=== PATIENT | female | born 1935 | race Caucasian/White ===

== ENCOUNTER 2016-07-25 10:54 | Outpatient (CLI) | payer OTHER ==
--- NOTE | 2016-07-25 12:40 | DI ---
EXAM: PA and lateral views of the chest HISTORY: Cough with history of asthma COMPARISON: Chest x-ray 08/17/2015 FINDINGS: The cardiomediastinal silhouette is enlarged. There is no pneumothorax or pleural effusi on. There is no consolidation, nodule or mass. The osseous structures demonstrate degenerative dis ease of the spine. IMPRESSION: Cardiomediastinal silhouette is enlarged with no acute consolidation.
== END 2016-07-25 10:55 | disposition home or self-care (01) ==
LOC: RAD 10:54
PROVIDERS: ATTEND Nurse Practitioner Family
DX: J45.991 Cough variant asthma (principal)

== ENCOUNTER 2016-08-07 15:16 | Outpatient (CLI) | END 2016-08-07 15:17 | disposition home or self-care (01) | LOC: CAR 15:16 | PROVIDERS: ATTEND Nurse Practitioner Family | DX: G47.10 Hypersomnia, unspecified (principal) | CPT/HCPCS: 95810 ==

== ENCOUNTER 2016-09-02 17:43 | Outpatient (CLI) | END 2016-09-02 17:44 | disposition home or self-care (01) | LOC: CAR 17:43 | PROVIDERS: ATTEND Psychiatry & Neurology Sleep Medicine | DX: G47.33 Obstructive sleep apnea (adult) (pediatric) (principal) | CPT/HCPCS: 95811 ==

== ENCOUNTER 2016-12-10 11:03 | Outpatient (CLI) | payer OTHER ==
--- NOTE | 2016-12-10 11:48 | DI ---
EXAM: Two views of the right hand. History: Right hand pain. Findings: No acute fracture or dislocation. Chondrocalcinosis within the triangular fibrocartilage . Moderate to severe narrowing of the first carpal metacarpal joint. Mild narrowing of the radioca rpal joint. Mild to moderate narrowing of the interphalangeal joints. Impression: 1. No acute osseous abnormality. 2. Arthritis. 3. Chondrocalcinosis.
--- NOTE | 2016-12-10 11:54 | DI ---
Exam: Left hand two views History: Arthritis Findings / impression: No acute bony or articular abnormalities are seen. Moderate interphalangeal osteoarthritic change most prominent distal interphalangeal joints. Osteoarthritic change of the f irst carpal-metacarpal joint, moderate. No erosive changes are seen. Intercarpal cystic changes ar e suspected. Overall moderate to severe distal interphalangeal and first carpal-metacarpal osteoart hritic change. Generally mild changes of the other levels.
== END 2016-12-10 11:04 | disposition home or self-care (01) ==
LOC: RAD 11:03
PROVIDERS: ATTEND Family Medicine
DX: R26.9 Unspecified abnormalities of gait and mobility (principal); M19.90 Unspecified osteoarthritis, unspecified site

== ENCOUNTER → 2017-02-23 | Outpatient (POV) | LOC: OUTPT 00:01 | PROVIDERS: ATTEND Otolaryngology | DX: H91.90 Unspecified hearing loss, unspecified ear (principal); R42 Dizziness and giddiness ==

== ENCOUNTER 2017-03-18 08:54 | Emergency (ER) ==
[2017-03-18 09:11] VITALS: TEMP 99; BMI 37.5
--- NOTE | 2017-03-18 09:34 | ED.PDOC ---
General ED Provider: Dr. SANDRA RODRIGUEZ Chief Complaint: Dizziness Stated Complaint: Pt reports "dizziness" since awakening this AM. Describes feeling of spinning around AND feeling like she was going to pass out. No nausea /vomitting/diarrhea. Has been having similar episodes of these symptoms intermittently x one month. Has seen PCP for this, doesn't recall his diagnosis , but he cut back or d/c'd one or more of her medications. She doesn't recall which ones. Time Seen by Physician: 09:31 Mode of Arrival: Stretcher Information Source: Patient, Family, EMT Exam Limitations: Other (Hard of hearing) Primary Care Provider: ILYA BERRY Nursing and Triage Documentation Reviewed and Agree: Yes EENT Complaint Exam - Ear Complaint/Exam Onset/Duration: awakening this AM. approx 90 minutes ago Symptoms Are: Still present Timing: Intermittent Initial Severity: Severe Current Severity: Moderate Character: Reports: Dizzy (room spinning AND feeling like she is going to pass out), Room spinning Aggravating: Reports: Position, Movement Alleviating: Reports: None Related History: Reports: Similar Episode (similar symptoms intermittently x 1 month) Vesicles to External Pinna: No Vesicles to Tragus: No TMJ Tenderness: None Mastoid Tenderness: None Tragal Tenderness: None External Canal: Normal Tympanic Membrane: Dullness Differential Diagnoses: Other (labyrinthitis, symptomatic anemia, cardic arrhythmia) Review of Systems - Review Of Systems Constitutional: Reports: No symptoms Eyes: Reports: Other (vertigo) Ears, Nose, Mouth, Throat: Reports: No symptoms Respiratory: Reports: Short of air (PMH of asthma, is frequently SOB) Cardiac: Reports: No symptoms GI: Reports: No symptoms : Reports: No symptoms Musculoskeletal: Reports: No symptoms Skin: Reports: No symptoms Neurological: Reports: No symptoms All Other Systems: Reviewed and Negative Past Medical History - Past Medical History Previously Healthy: Yes Endocrine: Reports: None Cardiovascular: Reports: Hypertension Respiratory: Reports: Asthma Hematological: Reports: Anemia Gastrointestinal: Reports: GERD Genitourinary: Reports: CKD Neuro/Psych: Reports: None Musculoskeletal: Reports: None Cancer: Reports: None Last Menstrual Period: 40 years - Surgical History General Surgical History: Reports: None - Family History Family History: Reports: Unknown - Social History Smoking Status: Never smoker Hx Substance Use: No Alcohol Screening: None Lives: With family - Immunizations Tetanus Shot up to Date: No Influenza Vaccine within 12 Months: No Pneumococcal Vaccine up to Date: No Physical Exam - Physical Exam Appearance: Well-appearing (positive orthostatics: Syst BP drop 30 points supine to standing), Ill-appearing, Obese Ill-appearing: None Pain Distress: None Eyes: CELESTINO (Positive Barany test), EOMI, Conjunctiva clear ENT: Nose normal, Oropharynx normal, TMs Occluded (TMs leblanc and dull, hard of hearing, barany test equivocal: no nystagmus seen but pt reports vertigo) Respiratory: Airway patent, Breath sounds clear, Breath sounds equal, Respirations nonlabored Cardiovascular: RRR (distant heart sounds), Pulses normal, No rub, No murmur GI/: Soft, Nontender, No masses, Bowel sounds normal, No Organomegaly, Tender (mild generalized tenderness) Musculoskeletal: Normal strength, ROM intact, No edema, No calf tenderness Skin: Warm, Dry, Normal color Neurological: Sensation intact, Motor intact, Reflexes intact, Cranial nerves intact, Alert, Oriented Psychiatric: Affect appropriate, Mood appropriate Interpretation - Radiology Interpretation Radiology Interpretation By: Radiologist Radiology Results: No acute changes Exam Interpreted: CXR, Portable CXR Xray Comments: Cardiomegally, otherwise negative - EKG Interpretation Time of EKG #1: 09:48 Rate: Osmel (HR 53) Rhythm: Sinus Ectopy: None Green: NL ST Segment: Normal Interpretation: Sinus bradycardia w/1st degree AV block Critical Care Note - Critical Care Note Total Time (mins): 0 Course - Course Hematology/Chemistry: 03/18/17 09:53 03/18/17 09:53 Vital Signs: Temp Pulse Resp BP Pulse Ox 03/18/17 08:56 99 F 54 L 20 190/84 H 96 Departure - Departure Time of Disposition: 11:29 Disposition: HOME SELF-CARE Discharge Problem: Orthostatic hypotension, Labyrinthitis Instructions: Labyrinthitis (ED) Condition: Good Pt referred to PMD for follow-up: Yes (Follow up with family doctor JAYCEE regarding low blood pressure) Allergies/Adverse Reactions: Allergies codeine Adverse Reaction (Verified 03/18/17 09:15) povidone-iodine [From Betadine] Adverse Reaction (Verified 03/18/17 09:15) soap [From Betadine] Adverse Reaction (Verified 03/18/17 09:15) Sulfa (Sulfonamide Antibiotics) Adverse Reaction (Verified 03/18/17 09:15) Home Medications: Ambulatory Orders Albuterol Sulfate [Proair Hfa] 1 puff INH PRN PRN 08/03/14 Allopurinol [Zyloprim] 300 mg PO DAILY 08/03/14 Aspirin [Aspirin EC] 81 mg PO DAILY 08/03/14 Azelastine HCl [Astepro] 0.05 puff INH BID 08/03/14 Furosemide [Lasix] 60 mg PO DAILY 08/03/14 Gabapentin [Neurontin] 100 mg PO BEDTIME 08/03/14 Mometasone Furoate [Nasonex] 1 puff INH BEDTIME 08/03/14 Ranitidine HCl [Zantac] 150 mg PO BID 08/03/14 Cholecalciferol (Vitamin D3) [Vitamin D3] 2,000 unit PO BID 03/18/17 Cyanocobalamin/Folic Acid [Vitamin P48-Jrgrj Acid Tablet] 1 each PO DAILY Lisinopril [Zestril] 10 mg PO BEDTIME 03/18/17 Meclizine HCl 25 mg PO QID PRN #20 tablet 03/18/17 Disposition Discussed With: Patient, Family
[2017-03-18 09:43] VITALS: BP 158/75
[2017-03-18 09:55] LABS: BASOPHILS % (AUTO) 0.6 % (0.0-3.0); EOSINOPHILS # (AUTO) 0.3 K/ul (0.0-0.7); EOSINOPHILS % (AUTO) 4.2 % (0.0-7.0); HEMATOCRIT 37.5 % (37.0-47.0); IMMATURE GRANULOCYTE % (AUTO) 0.3 % (0.0-5.0); LYMPHOCYTES # (AUTO) 2.2 K/uL (0.60-3.4); MEAN CORPUSCULAR HEMOGLOBIN 33.1 pg (27.0-31.0); MEAN CORPUSCULAR HGB CONC 34.7 (31.8-35.4); MEAN CORPUSCULAR VOLUME 95.4 fl (81.0-99.0); MONOCYTES # (AUTO) 0.6 K/uL (0.4-2.0); NEUTROPHILS # (AUTO) 3.8 K/ul (2.0-6.9); NEUTROPHILS % (AUTO) 54.9; PLATELET COUNT 208 10^3/uL (140-440); RED BLOOD COUNT 3.93 10^6/ul (4.20-5.40); WHITE BLOOD COUNT 6.96 K/ul (4.6-10.2)
--- NOTE | 2017-03-18 10:12 | DI ---
EXAM: Single view of the chest. History: Short of breath Comparison: Chest radiograph 07/25/2016 Findings: Heart is enlarged. No focal consolidation. No appreciable pleural fluid and no pneumotho rax. No acute osseous abnormalities. Atherosclerotic vascular calcifications. Impression: Cardiomegaly without evidence for pulmonary edema.
[2017-03-18 10:21] LABS: ALBUMIN 3.3 g/dL (3.4-5.0); ALBUMIN/GLOBULIN RATIO 1.1; ANION GAP 12.6; BILIRUBIN,TOTAL 0.54 mg/dL (0.00-1.20); BUN/CREATININE RATIO 14.63; CALCIUM 10.1 mg/dL (8.2-10.2); CREATININE 0.82 mg/dL (0.60-1.30); POTASSIUM 3.6 mmol/L (3.5-5.10); TOTAL PROTEIN 6.3 g/dL (5.8-8.1); TROPONIN I 0.029 ng/ml (0.0000-0.4000)
[2017-03-18] MEDS ORDERED: ANTIVERT PO STA (10:41)
[2017-03-18 11:22] LABS: BILIRUBIN,URINE Negative (NEGATIVE); KETONES,URINE Negative (NEGATIVE); LEUKOCYTE ESTERASE ,URINE Negative (NEGATIVE); NITRITE,URINE Negative (NEGATIVE); PROTEIN,URINE Negative (NEGATIVE); URINE, BLOOD Negative (NEGATIVE)
[2017-03-18 11:23] LABS: ADD URINE MICROSCOPIC NO
== END 2017-03-18 12:11 | disposition home or self-care (01) ==
LOC: ED 08:54
DX: I95.1 Orthostatic hypotension (principal); H83.09 Labyrinthitis, unspecified ear; R06.02 Shortness of breath; Z79.899 Other long term (current) drug therapy
CPT/HCPCS: 36415; 80053; 81001; 82550; 84484; 85025; 93005; 93010; 99283

== ENCOUNTER 2017-04-09 10:28 | Outpatient (CLI) | payer OTHER | END 2017-04-09 11:19 | disposition short-term general hospital (02) | LOC: AMBL 10:28 | DX: M54.9 Dorsalgia, unspecified (principal); S51.012A Laceration without foreign body of left elbow, initial encounter; R42 Dizziness and giddiness; W19.XXXA Unspecified fall, initial encounter ==

== ENCOUNTER 2017-05-11 09:06 | Emergency (ER) ==
[2017-05-11 09:13] VITALS: BP 120/63; TEMP 97.6; BMI 37.8
[2017-05-11 09:20] LABS: BASOPHILS % (AUTO) 0.3 % (0.0-3.0); EOSINOPHILS # (AUTO) 0.2 K/ul (0.0-0.7); EOSINOPHILS % (AUTO) 1.5 % (0.0-7.0); HEMATOCRIT 39.8 % (37.0-47.0); HEMOGLOBIN 13.4 g/dl (12.0-16.0); IMMATURE GRANULOCYTE % (AUTO) 0.4 % (0.0-5.0); LYMPHOCYTES # (AUTO) 3.8 K/uL (0.60-3.4); LYMPHOCYTES % (AUTO) 32.3 (10.0-50.0); MEAN CORPUSCULAR HEMOGLOBIN 32.4 pg (27.0-31.0); MEAN CORPUSCULAR HGB CONC 33.7 (31.8-35.4); MEAN CORPUSCULAR VOLUME 96.1 fl (81.0-99.0); MONOCYTES # (AUTO) 0.7 K/uL (0.4-2.0); MONOCYTES % (AUTO) 6.4 (0-10); NEUTROPHILS # (AUTO) 6.9 K/ul (2.0-6.9); NEUTROPHILS % (AUTO) 59.1; PLATELET COUNT 186 10^3/uL (140-440); RED BLOOD COUNT 4.14 10^6/ul (4.20-5.40); WHITE BLOOD COUNT 11.63 K/ul (4.6-10.2)
[2017-05-11 09:45] LABS: ALBUMIN 3.4 g/dL (3.4-5.0); ALBUMIN/GLOBULIN RATIO 1.21; BILIRUBIN,TOTAL 0.62 mg/dL (0.00-1.20); BUN/CREATININE RATIO 15.38; CALCIUM 9.9 mg/dL (8.2-10.2); CREATININE 1.17 mg/dL (0.60-1.30); TOTAL PROTEIN 6.2 g/dL (5.8-8.1); TROPONIN I 0.031 ng/ml (0.0000-0.4000)
--- NOTE | 2017-05-11 09:57 | CT ---
EXAM: CT scan of the chest without contrast HISTORY: Cough TECHNIQUE: Imaging of the chest was performed without intravenous contrast. 5 mm thin axial images and coronal and sagittal reconstructions were provided for interpretation. Comparison none. FINDINGS: The heart is normal size. No mediastinal masses are seen. There is atherosclerotic calci fication of the coronary arteries and thoracic aorta. Lungs are clear. There is no consolidation. No lytic or blastic lesions are seen within the osseous structures. There has been previous cholecyst ectomy. IMPRESSION: No acute abnormalities are seen within the thorax.
--- NOTE | 2017-05-11 10:19 | ED.PDOC ---
General ED Provider: Dr. BURT NARAYANAN Chief Complaint: Shortness of Air Stated Complaint: cough Time Seen by Physician: 09:10 Mode of Arrival: Walk-In Information Source: Patient Exam Limitations: No limitations Primary Care Provider: ILYA BERRY Nursing and Triage Documentation Reviewed and Agree: Yes Miscellaneous Complaint Exam - Complex/Multi-System Complaint/Exam Onset/Duration: coughx 1 day Symptoms Are: Resolved Episodes Lasting: Minutes Initial Severity: Mild Current Severity: None Location of Pain: 0 Pain Radiates to: 0 Character: 0 Aggravatin Alleviatin Associated Signs and Symptoms: Reports: Cough. Denies: Decreased responsiveness , Confusion, Agitation, Dizziness, Weakness, Syncope, Headache, Short of air, Wheezing, Hemoptysis, Chest pain, Palpitations, Edema, Nausea, Vomiting, Diarrhea, Abdominal pain, Back pain, Dysuria, Hematemesis, Melena, Decreased oral intake, Fever, Diaphoresis, Immunocompromised, Anticoagulation Therapy, Recent medication changes, Indwelling medical coder, Prior MRSA, Prior VRE, Recent trauma, Remote trauma Recent Echo/LV Function: No Respiratory Distress: None JVD Present: No Tachypnea Present: No Stridor Present: No Abdominal Findings: Present: Normal findings Glascow Coma Scale (see protocol): 15 Meningeal Signs Positive: Yes Focal Weakness: Present: None Focal Sensory Loss: Present: None Gait: Normal Gag Reflex Present: Yes Babinski Sign: Negative Right, Negative Left Skin Findings: Present: Normal findings Joint Swelling Present: No In-Dwelling Device Present: No Differential Diagnosis: Metabolic Abnormality Quality Indicators for Cardiac Chest Pain: EKG in 10min. Quality Indicators for AMI: EKG in 10min. Quality Indicator For Non-Traumatic Chest Pain/Syncope: EKG Performed Review of Systems - Review Of Systems Constitutional: Reports: No symptoms Eyes: Reports: No symptoms Ears, Nose, Mouth, Throat: Reports: No symptoms Respiratory: Reports: Cough Cardiac: Reports: No symptoms GI: Reports: No symptoms : Reports: No symptoms Musculoskeletal: Reports: No symptoms Skin: Reports: No symptoms Neurological: Reports: No symptoms Endocrine: Reports: No symptoms Hematologic/Lymphatic: Reports: No symptoms All Other Systems: Reviewed and Negative Past Medical History - Past Medical History Previously Healthy: Yes Endocrine: Reports: None Cardiovascular: Reports: Hypertension Respiratory: Reports: Asthma Hematological: Reports: Anemia Gastrointestinal: Reports: GERD Genitourinary: Reports: CKD Neuro/Psych: Reports: None Musculoskeletal: Reports: None Cancer: Reports: None Last Menstrual Period: N/A - Surgical History General Surgical History: Reports: None - Family History Family History: Reports: Unknown - Social History Smoking Status: Never smoker Hx Substance Use: No Alcohol Screening: None - Immunizations Tetanus Shot up to Date: Yes Influenza Vaccine within 12 Months: No Pneumococcal Vaccine up to Date: No Physical Exam - Physical Exam Appearance: Well-appearing, No pain distress, Well-nourished Eyes: CELESTINO, EOMI, Conjunctiva clear ENT: Ears normal, Nose normal, Oropharynx normal Respiratory: Airway patent, Breath sounds clear, Breath sounds equal, Respirations nonlabored Cardiovascular: RRR, Pulses normal, No rub, No murmur GI/: Soft, Nontender, No masses, Bowel sounds normal, No Organomegaly Musculoskeletal: Normal strength, ROM intact, No edema, No calf tenderness Skin: Warm, Dry, Normal color Neurological: Sensation intact, Motor intact, Reflexes intact, Cranial nerves intact, Alert, Oriented Psychiatric: Affect appropriate, Mood appropriate Interpretation - Radiology Interpretation Radiology Interpretation By: Radiologist Radiology Results: No acute changes - Biopharmaceutical Rep Rate: Normal Rhythm: Sinus Ectopy: None Critical Care Note - Critical Care Note Total Time (mins): 0 Course - Course Hematology/Chemistry: 05/11/17 09:13 05/11/17 09:13 Orders, Labs, Meds: Lab Review 05/11/17 05/11/17 09:13 09:13 WBC 11.63 H RBC 4.14 L Hgb 13.4 Hct 39.8 MCV 96.1 MCH 32.4 H MCHC 33.7 RDW Coeff of Jeff 13.6 Plt Count 186 Immature Gran % (Auto) 0.4 Neut % (Auto) 59.1 Lymph % (Auto) 32.3 Holmes % (Auto) 6.4 Eos % (Auto) 1.5 Baso % (Auto) 0.3 Immature Gran # (Auto) 0.1 Neut # 6.9 Lymph # 3.8 H Holmes # 0.7 Eos # 0.2 Baso # 0.0 Sodium 141 Potassium 4.0 Chloride 103 Carbon Dioxide 27 Anion Gap 15.0 BUN 18 Creatinine 1.17 Estimated GFR (MDRD) 44.00 BUN/Creatinine Ratio 15.38 Glucose 115 Calcium 9.9 Total Bilirubin 0.62 AST 18 ALT 20 Alkaline Phosphatase 69 Total Creatine Kinase 59 Troponin I 0.0310 Total Protein 6.2 Albumin 3.4 Globulin 2.8 Albumin/Globulin Ratio 1.21 Orders Category Date Time Status CBC W/ AUTO DIFF Stat LAB 05/11/17 09:07 Ordered COMPREHENSIVE METABOLIC PANEL Stat LAB 05/11/17 09:07 Ordered CREATINE KINASE Stat LAB 05/11/17 09:07 Ordered TROPONIN I Stat LAB 05/11/17 09:[address] CHEST W/O CONTRAST Stat RADS 05/11/17 09:07 Ordered Vital Signs: Temp Pulse Resp BP Pulse Ox 05/11/17 09:07 97.6 F 79 22 120/63 100 Departure - Departure Time of Disposition: 10:20 Disposition: HOME SELF-CARE Discharge Problem: Cough Instructions: Cold Symptoms (ED), Chronic Cough (ED) Condition: Good Pt referred to PMD for follow-up: Yes Additional Instructions: Please call your Family Physician as soon as possible to schedule a follow-up appointment. Allergies/Adverse Reactions: Allergies codeine Adverse Reaction (Verified 05/11/17 09:14) povidone-iodine [From Betadine] Adverse Reaction (Verified 05/11/17 09:14) soap [From Betadine] Adverse Reaction (Verified 05/11/17 09:14) Sulfa (Sulfonamide Antibiotics) Adverse Reaction (Verified 05/11/17 09:14) Home Medications: Ambulatory Orders Albuterol Sulfate [Proair Hfa] 1 puff INH PRN PRN 08/03/14 Allopurinol [Zyloprim] 300 mg PO DAILY 08/03/14 Aspirin [Aspirin EC] 81 mg PO DAILY 08/03/14 Azelastine HCl [Astepro] 0.05 puff INH BID 08/03/14 Gabapentin [Neurontin] 100 mg PO BEDTIME 08/03/14 Cholecalciferol (Vitamin D3) [Vitamin D3] 2,000 unit PO BID 03/18/17 Lisinopril [Zestril] 10 mg PO BEDTIME 03/18/17 Atorvastatin Calcium [Lipitor] 20 mg PO DAILY 03/26/17 Blood Sugar Diagnostic [Glucose Test Strip] 1 each MC DAILY strip 03/26/17 Lancets [Sure Comfort Lancets] 1 each MC DAILY each 03/26/17 Amlodipine Besylate 5 mg PO DAILY 05/11/17 Clonidine HCl 0.1 mg PO DAILY 05/11/17 Docusate Sodium 100 mg PO DAILY 05/11/17 Enoxaparin Sodium [Lovenox] 40 mg PO DAILY 05/11/17 Fluticasone/Salmeterol 250/50 [Advair 250-50 Diskus] 1 puff INH DAILY 05/11/17 Furosemide [Lasix] 40 mg PO DAILY 05/11/17 Levalbuterol Tartrate [Levalbuterol Tartrate Hfa] 15 gm INH DAILY 05/11/17 Prednisone 10 mg PO DAILY 05/11/17 Ranitidine HCl 150 mg PO DAILY 05/11/17 Spironolactone 25 mg PO DAILY 05/11/17
== END 2017-05-11 11:15 | disposition home or self-care (01) ==
LOC: ED 09:06
DX: R05 Cough (principal); R06.02 Shortness of breath; Z79.899 Other long term (current) drug therapy; R10.9 Unspecified abdominal pain; Z87.09 Personal history of other diseases of the respiratory system
CPT/HCPCS: 36415; 80053; 82550; 84484; 85025; 99284

== ENCOUNTER 2017-05-26 08:55 | Outpatient (CLI) ==
--- NOTE | 2017-05-26 10:38 | MRI ---
EXAM: MRI brain without and with IV contrast. DATE: 26 May 2017. HISTORY: Memory loss, dementia. TECHNIQUE: Sagittal T1W pre and postcontrast, axial T2W, axial FLAIR, axial T1W pre and postcontrast , axial DWI, coronal T1W postcontrast, and coronal T2W GRE sequences of the brain were obtained using 1.2 Jazmin magnet. Patient appears to be canted in the scanner CONTRAST: Omniscan - 20 ml IV. COMPARISON: None. FINDINGS: The ventricles, cisterns, and sulci are commensurately enlarged due to involutional change . No midline shift, mass effect or abnormal extra-axial fluid collection is apparent. Several 3-5 m m DWI bright foci scattered in the medulla, mike and midbrain are likely artifacts since there are no corresponding abnormalities on other sequences. Small areas of T2W/FLAIR hyperintense without abnor mal enhancement are observed in the mike bilaterally. No enhancing neoplasm is identified. No abnor mal contrast enhancement is identified in the brain, meninges or dura. A [id number] confluent rim of T2W/FLAIR hyperintensity is observed in the white matter abutting each lateral ventricle. Mu ltiple other 2 mm to 2 cm, T2W/FLAIR bright, non-enhancing foci are scattered in the eddy radiata, centrum semiovale and subcortical white matter bilaterally. The cordero - white matter differentiation is normal. A few 1-2 mm diameter, T2W GRE dark foci at the right frontal and temporal lobe regions a ppear to the most part to be vessels near the cortical surface, although tiny, old cortical petechial hemorrhages are not totally excluded at two frontal lobe locations. No migration or diverticulation abnormality is identified. No distinct mesial temporal sclerosis is detected. The 7th/8th cranial nerve complexes, cerebellopontine angles, and visible cervical spinal cord are normal. There is no c erebellar tonsillar ectopia. The pituitary gland is a very small and flattened against the floor of the sella, with CSF filling the majority of the pituitary fossa. Corpus callosum is normal in size a nd configuration. Flow voids are present in the major intracranial arteries and in the dural venous sinuses. No aneurysm, AVM or dural venous sinus thrombosis is apparent. Appearance in the lens of e ach eye suggests prior cataract surgery. No orbit abnormality is identified. Right mastoid air cell s are unremarkable. A few left mastoid air cells have reticular pattern of T2W bright, T1W intermedi ate signal with minor enhancement. There is no acute sinusitis. No neck mass or lymphadenopathy is detected. No calvarial neoplasm or acute fracture is evident. IMPRESSIONS: Unexpected findin. Probable DWI artifacts in the brainstem. Correlation with clinical symptoms recommended to exclude the slight possibility of true infarcts. 2. Right frontal lobe T2W GRE susceptibility artifacts. DDX: Normal vessels, artifacts, old petechi al hemorrhages, amyloidosis. 3. Marked cerebral and moderate brainstem small vessel disease vs chronic hypertensive encephalopath y. 4. No acute hemorrhage, enhancing mass, or hydrocephalus. 5. Mild/moderate cerebral and mild cerebellar atrophy. 6. 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 7. Few left mastoid air cells mucosal disease.
== END 2017-05-26 08:56 | disposition home or self-care (01) ==
LOC: RAD 08:55
PROVIDERS: ATTEND Psychiatry & Neurology Neurology
DX: R41.3 Other amnesia (principal); F03.90 Unspecified dementia, unspecified severity, without behavioral disturbance, psychotic disturbance, mood disturbance, and anxiety

== ENCOUNTER 2017-06-04 13:27 | Outpatient (CLI) ==
[2017-06-04 13:52] LABS: BILIRUBIN,URINE Negative (NEGATIVE); KETONES,URINE Trace (NEGATIVE); LEUKOCYTE ESTERASE ,URINE 1+ (NEGATIVE); NITRITE,URINE Negative (NEGATIVE); PH,URINE 5.5 (5-9); PROTEIN,URINE Negative (NEGATIVE); URINE, BLOOD Negative (NEGATIVE)
[2017-06-04 13:53] LABS: ADD URINE MICROSCOPIC YES
[2017-06-04 13:56] LABS: BACTERIA,URINE 2+ (NOT PRESENT)
== END 2017-06-04 13:28 | disposition home or self-care (01) ==
LOC: NONPT 13:27
PROVIDERS: ATTEND Family Medicine
DX: R35.0 Frequency of micturition (principal)
CPT/HCPCS: 81001; 87086

== ENCOUNTER 2017-12-04 20:01 | Inpatient (IN) ==
[2017-12-04 23:45] VITALS: BMI 40.6
[2017-12-05] MEDS ORDERED: MILK OF MAGNESIA PO PRN (04:20)
[2017-12-05] MEDS ORDERED: SODIUM BICARBONATE PO SCH (05:00)
[2017-12-05] MEDS: XOPENEX 1.25 MG NEB SCH ×3 (05:33→21:45)
[2017-12-05] MEDS: PROTONIX PO SCH ×2 (06:03→17:55)
[2017-12-05] MEDS ORDERED: AZELASTINE HCL INH SCH (09:00)
[2017-12-05] MEDS: TOPROL XL PO SCH ×2 (09:36→20:50)
[2017-12-05] MEDS: ZYLOPRIM PO SCH ×2 (09:36→20:50)
[2017-12-05] MEDS: OMNICEF PO SCH ×2 (09:36→20:50)
[2017-12-05] MEDS: ZESTRIL PO SCH (09:37)
[2017-12-05] MEDS: LIPITOR PO SCH (09:37)
[2017-12-05] MEDS: ASPIRIN EC PO SCH (09:37)
[2017-12-05] MEDS: LASIX TAB PO SCH (09:38)
[2017-12-05] MEDS: COLACE PO SCH ×2 (09:38→20:50)
[2017-12-05] MEDS: PREDNISONE PO SCH (09:38)
[2017-12-05] MEDS: SODIUM BICARBONATE PO SCH ×2 (09:38→20:50)
[2017-12-05] MEDS: ELIQUIS PO SCH ×2 (09:39→20:51)
--- NOTE | 2017-12-05 11:42 | RS.PTINEVL ---
Subjective - Patient information Date of Evaluation: 12/05/17 Date of Arrival on Unit: 12/04/17 Admitted From:: Facility Transfer (transferred from [facility] for swing bed.) Diagnosis: afib, SOA, decline in function Usual Living Arrangement: With Others Living Arrangement Comments: grand daughter lives with patient and pt has 15 hours per week from [employer] which assists with bathing etc. Home Environment: House, Ramp Medical History: Hypertension, COPD, Arthritis Medical History Comments:: Chronic kidney disease, asthma LATEX ALLERGY?: No Medications: see chart Subjective Information/ Patient Comments:: pt states "I need to go home." pt/ nurse report that pt was up amb in hallway on her own earlier today, and unsteady. - Level of function Abilities prior to this admission: pt was very seldom at home alone, has [employer] as well as granddtr to assist with ADL's Current Level of Function: Partially Dependent Current Equipment Used at Home: walker.raised toilet seat. Life Alert system. Interventions - Objective Patient Orientation: Person, Place Current Interventions: Telemetry Observation: pt with 2+ pitting edema BLE Range of Motion - ROM Right Upper Extremity AROM: WFL's Left Upper Extremity AROM: WFL's Right Lower Extremity AROM: WFL's Left Lower Extremity AROM: WFL's Muscle Strength - Muscle Strength Right Upper Extremity Strength: Mild Weakness (grossly 4-/5) Left Upper Extremity Strength: Mild Weakness (grossly 4-/5) Right Lower Extremity Strength: Mild Weakness (hip flex 4-/5, knee flex/ext 4/5 , ankle df/pf 4/5) Left Lower Extremity Strength: Mild Weakness (hip flex 4-/5, knee flex/ext 4/5, ankle df/pf 4/5) Sensation - Sensation Right Upper Extremity Sensation: Intact/Normal Left Upper Extremity Sensation: Intact/Normal Right Lower Extremity Sensation: Intact/Normal Left Lower Extremity Sensation: Intact/Normal Palpation Palpation Findings: Tenderness Comments:: BLE tender to palpation Balance - Sitting Balance and Reactions Static Sitting Balance: Good Dynamic Sitting Balance: Fair Sitting Equilibrium Reactions: Delayed Left, Delayed Right Sitting Protective Reactions: Delayed Left, Delayed Right - Standing Balance and Reactions Static Standing Balance: Poor Dynamic Standing Balance: Poor Standing Equilibrium Reactions: Delayed Left, Delayed Right Standing Protective Reactions: Delayed Left, Delayed Right - Comments Balance Assessment Comments: pt with 3 episodes of LOB during amb required min assist to prevent fall Functional Mobility - Bed Mobility Comments:: pt seen sitting up in chair, does not wish to go to bed. - Transfers Sit to Stand: Min Assist Stand to Sit: Min Assist - Safety Awareness Safety Awareness: Poor SHYLA INDEX SCORE: 38 Ambulation - Ambulation Assistive Device Used: Rolling Walker Orthotic/Prosthetic Device: No Distance: 100ft Assistance needed with Ambulation: Min Assist, 2 person assist Gait Deviations: Forward posture, Short stride, Deviates from path Ambulation Comments: pt amb with flexed posture, decreased step length. pt with 3 episodes of LOB required min x 2 to prevent fall. Factors Affecting Ambulation: Decreased Balance, Weakness, Decreased Safety, Cognitive Status, Limited Endurance Treatment time - Time with patient Total treatment time: 29 Patient Education - Education Patient Education: Activity Modification, Education of Plan of Care Teaching Recipient: Patient Teaching Methods: Discussion Comments: discussion with patient and family regarding safety and POC, reinforced with pt importance of not amb without assist due to high risk of falls. Assessment - Assessment Problem List:: Decreased level of function, Requires training/education, Decreased safety/Risk of falls, Weakness, Cognitive status limits abilities Rehab Potential: Good Further Therapy Indicated?: Yes Candidate for Swing Bed for Therapy Services?: pt is swing bed patient Evaluation Complexity: HISTORY: Medium (afib, htn, copd, OA), EXAM OF BODY SYSTEMS: Medium (strength, balance, gait, posture), CLINICAL PRESENTATION: Medium (evolving), CLINICAL DECISION MAKING: Medium Short Term Goals GOAL #1: pt demonstrate rolling and scooting up in bed with verbal cues Goal to be met by: 12/10/17 GOAL #2: pt transfer sup to/from sit to/from stand min x 1 Goal to be met by: 12/10/17 GOAL #3: pt amb with rwx 125ft with min to CGA x 1 with improved posture Goal to be met by: 12/10/17 GOAL #4: pt with improved BLE strength 4 to 4+/5 Goal to be met by: 12/10/17 Assisted Goals GOAL #1: pt transfer sup to/from sit to/from stand CGA x 1 Goal to be met by: 12/15/17 GOAL #2: pt amb with rwx functional household distance with CGA with no LOB Goal to be met by: 12/15/17 GOAL #3: Improved Shyla score >45 Goal to be met by: 12/15/17 Plan Plan of Care: Therapeutic EX, Therapeutic Activity Other:: gait training Frequency of Treatment: 1-2 X day, as tolerated Duration of Treatment: 10 days Anticipated Discharge Destination: Home Treatment Diagnosis (ICD 10 Codes): difficulty walking R 26.2. balance impaired R 26.81. general weakness M 62.81 Has the Physician been added for Co-signature?: Yes
--- NOTE | 2017-12-05 13:44 | RS.OTINEVL ---
Subjective - Patient information Date of Evaluation: 12/05/17 Date of Arrival on Unit: 12/04/17 Admitted From:: Facility Transfer (transferred from [facility] for swing bed.) Usual Living Arrangement: With Others Living Arrangement Comments: grand daughter lives with patient and pt has 15 hours per week from [employer] which assists with bathing etc. 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 Life Alert system. Pain Assessment - Pain Pain Score: 0 Interventions - Objective Patient Orientation: Person Observation: Pt is confused. Pt is oriented to person only. Pt requires assistance for sit to stand. Pt is SOLOMON. Pt is able to stand minimal assistance of 2. Interventions - ROM Right Upper Extremity AROM: WFL's Left Upper Extremity AROM: WFL's - Strength Right Upper Extremity Strength: Mild Weakness Left Upper Extremity Strength: Mild Weakness - Sensation Right Upper Extremity Sensation: Intact/Normal Left Upper Extremity Sensation: Intact/Normal Balance - Sitting Balance Static Sitting Balance: Good Dynamic Sitting Balance: Good - Standing Balance Static Standing Balance: Poor Dynamic Standing Balance: Poor - Comments Balance Assessment Comments: Poor ADL Skills - Self Feeding Self Feeding: Independent - Grooming Grooming: Min Assist - Bathing Bathing UE: Min Assist Bathing LE: Max Assist - Dressing Dressing UE: Min Assist Dressing LE: Min Assist, Max Assist - Toilet Management Toileting Management: Max Assist Functional Mobility - Bed Mobility Rolling R/L: Independent Scooting: Independent Supine to Sit: Independent Sit to Supine: Min Assist - Transfers Sit to Stand: Min Assist, 2 person assist Stand to Sit: Min Assist, 2 person assist Stand Pivot Transfers: Max Assist, 2 person assist - Ambulation Weight Bearing Status: FWB Assistive Device Used: Rolling Walker Assistance needed with Ambulation: Max Assist, 2 person assist - Safety Awareness Safety Awareness: Poor ASHKAN INDEX SCORE: 38 Additional Treatment Performed - Additional units charged OT 1 to 1 Activity: 15 - Time with patient Total treatment time: 32 Activities Do you enjoy playing games?: Yes Would you be interested in leaving your room for activities?: Yes Would you enjoy group activities?: Yes Do you have difficulty with your vision?: Yes What types of things do you enjoy doing? Any Hobbies?: Puzzles, word search Patient Interests:: Watching Television, Puzzles/Games, Visiting/Socializing Patient Education Patient Education: Education of diagnosis, Body/Joint mechanics, Home Exercise Program, Home Safety, Activity Modification, Education of Plan of Care Teaching Recipient: Patient Teaching Methods: Discussion Assessment Problem List:: Decreased level of function, Requires training/education, Decreased safety/Risk of falls, Weakness, Cognitive status limits abilities Rehab Potential: Good Further Therapy Indicated?: Yes Evaluation Complexity: HISTORY: Medium, EXAM OF BODY SYSTEMS: Medium, CLINICAL DECISION MAKING: Medium Short Term Goals - Goals GOAL 1: Pt to complete sit to stand CGA from chair. Goal to be met by: 12/12/17 GOAL 2: Pt to increase dyn. stand balance to Fair- to increase I of sink level ADLS Goal to be met by: 12/12/17 GOAL 3: Pt to be independent with donning and doffing her shoes. Goal to be met by: 12/12/17 GOAL 4: Pt to increase activity tolerance to 10 minutes without SOA. Goal to be met by: 12/12/17 Kettle Girl Goals GOAL 1: Pt to increase sit to stand to I for ADLS. Goal to be met by: 12/19/17 GOAL 2: Pt to increase BUE strength to 4+/5 to increase sefl care manaagment. Goal to be met by: 12/19/17 GOAL 3: Pt to increase her activity tolerance to 15 minutes. Goal to be met by: 12/19/17 Plan Plan of Care: Therapeutic EX, Neuromuscular Re-Educ, Therapeutic Activity, Self- Care/Home Management Frequency of Treatment: 1-2 X day, as tolerated Duration of Treatment: 2 Weeks Anticipated Discharge Destination: Home Treatment Diagnosis (ICD 10 Codes): M62.81 Muscle Weakness Has the Physician been added for Co-signature?: Yes
[2017-12-06] MEDS: PROTONIX PO SCH ×2 (05:37→16:54)
[2017-12-06] MEDS: LASIX TAB PO SCH (05:37)
[2017-12-06] MEDS: XOPENEX 1.25 MG NEB SCH ×3 (06:15→21:55)
[2017-12-06] MEDS: ZESTRIL PO SCH (08:31)
[2017-12-06] MEDS: ELIQUIS PO SCH ×2 (08:31→20:51)
[2017-12-06] MEDS: ZYLOPRIM PO SCH ×2 (08:31→20:51)
[2017-12-06] MEDS: OMNICEF PO SCH ×2 (08:32→20:52)
[2017-12-06] MEDS: PREDNISONE PO SCH (08:32)
[2017-12-06] MEDS: COLACE PO SCH ×2 (08:32→20:51)
[2017-12-06] MEDS: TOPROL XL PO SCH ×2 (08:32→20:52)
[2017-12-06] MEDS: LIPITOR PO SCH (08:32)
[2017-12-06] MEDS: SODIUM BICARBONATE PO SCH ×2 (08:32→20:51)
[2017-12-06] MEDS: ASPIRIN EC PO SCH (08:32)
[2017-12-07] MEDS ORDERED: LEVALBUTEROL TARTRATE INH PRN (02:50)
[2017-12-07] MEDS: XOPENEX 1.25 MG NEB SCH ×3 (05:40→22:00)
[2017-12-07] MEDS: LASIX TAB PO SCH (06:25)
[2017-12-07] MEDS: PROTONIX PO SCH (06:25)
[2017-12-07] MEDS: BALANCED B-100 PO SCH (08:34)
[2017-12-07] MEDS: ASTELIN 0.1% NAS SCH ×2 (08:34→20:59)
[2017-12-07] MEDS: OMNICEF PO SCH ×2 (08:35→20:59)
[2017-12-07] MEDS: ZYLOPRIM PO SCH ×2 (08:35→20:59)
[2017-12-07] MEDS: VITAMIN D PO SCH (08:35)
[2017-12-07] MEDS: LIPITOR PO SCH (08:35)
[2017-12-07] MEDS: ZESTRIL PO SCH (08:35)
[2017-12-07] MEDS: TOPROL XL PO SCH ×2 (08:35→20:59)
[2017-12-07] MEDS: PREDNISONE PO SCH (08:35)
[2017-12-07] MEDS: COLACE PO SCH ×2 (08:35→20:59)
[2017-12-07] MEDS: SODIUM BICARBONATE PO SCH ×2 (08:35→21:00)
[2017-12-07] MEDS: ASPIRIN EC PO SCH (08:36)
[2017-12-07] MEDS: NON-FORMULARY MEDICATION (Azelastine Hcl [Azelastine Hcl] 1 DROP) OP SCH ×2 (08:36→20:59)
[2017-12-07] MEDS: FORMOTEROL IH SCH ×2 (08:37→22:52)
[2017-12-07] MEDS: ELIQUIS PO SCH ×2 (08:37→21:00)
[2017-12-07] MEDS: MOMETASONE IH SCH ×2 (08:37→22:52)
[2017-12-07] MEDS ORDERED: NON-FORMULARY MEDICATION (Cholecalciferol (Vitamin D3) [Vitamin D3] 400 UNIT) PO SCH (09:00)
[2017-12-08] MEDS: XOPENEX 1.25 MG NEB SCH ×3 (05:43→21:43)
[2017-12-08] MEDS: PROTONIX PO SCH (06:29)
[2017-12-08] MEDS: LASIX TAB PO SCH (06:29)
[2017-12-08] MEDS: ASPIRIN EC PO SCH (08:23)
[2017-12-08] MEDS: ZESTRIL PO SCH (08:23)
[2017-12-08] MEDS: OMNICEF PO SCH ×2 (08:23→20:31)
[2017-12-08] MEDS: TOPROL XL PO SCH ×2 (08:24→20:31)
[2017-12-08] MEDS: VITAMIN D PO SCH (08:24)
[2017-12-08] MEDS: BALANCED B-100 PO SCH (08:24)
[2017-12-08] MEDS: SODIUM BICARBONATE PO SCH ×2 (08:24→20:30)
[2017-12-08] MEDS: PREDNISONE PO SCH (08:25)
[2017-12-08] MEDS: COLACE PO SCH ×2 (08:25→20:31)
[2017-12-08] MEDS: LIPITOR PO SCH (08:25)
[2017-12-08] MEDS: ZYLOPRIM PO SCH ×2 (08:25→20:31)
[2017-12-08] MEDS: ELIQUIS PO SCH ×2 (08:26→20:32)
[2017-12-08] MEDS: NON-FORMULARY MEDICATION (Azelastine Hcl [Azelastine Hcl] 1 DROP) OP SCH ×2 (08:32→20:31)
[2017-12-08] MEDS: MOMETASONE IH SCH ×2 (08:32→20:32)
[2017-12-08] MEDS: FORMOTEROL IH SCH ×2 (08:32→20:32)
[2017-12-08] MEDS: ASTELIN 0.1% NAS SCH ×2 (08:32→20:30)
[2017-12-09] MEDS: LASIX TAB PO SCH (05:43)
[2017-12-09] MEDS: XOPENEX 1.25 MG NEB SCH ×3 (05:45→20:52)
[2017-12-09] MEDS: PROTONIX PO SCH (06:16)
[2017-12-09] MEDS: SODIUM BICARBONATE PO SCH ×2 (09:22→20:58)
[2017-12-09] MEDS: OMNICEF PO SCH ×2 (09:22→20:57)
[2017-12-09] MEDS: ASTELIN 0.1% NAS SCH ×2 (09:22→21:42)
[2017-12-09] MEDS: BALANCED B-100 PO SCH (09:22)
[2017-12-09] MEDS: ZESTRIL PO SCH (09:23)
[2017-12-09] MEDS: ASPIRIN EC PO SCH (09:23)
[2017-12-09] MEDS: ZYLOPRIM PO SCH ×2 (09:23→20:55)
[2017-12-09] MEDS: TOPROL XL PO SCH ×2 (09:23→21:40)
[2017-12-09] MEDS: PREDNISONE PO SCH (09:23)
[2017-12-09] MEDS: LIPITOR PO SCH (09:23)
[2017-12-09] MEDS: COLACE PO SCH ×2 (09:23→20:55)
[2017-12-09] MEDS: VITAMIN D PO SCH (09:23)
[2017-12-09] MEDS: ELIQUIS PO SCH ×2 (09:24→20:55)
[2017-12-09] MEDS: NON-FORMULARY MEDICATION (Azelastine Hcl [Azelastine Hcl] 1 DROP) OP SCH ×2 (09:25→21:39)
[2017-12-09] MEDS: FORMOTEROL IH SCH ×2 (09:27→21:40)
[2017-12-09] MEDS: MOMETASONE IH SCH ×2 (09:27→21:40)
[2017-12-10] MEDS: XOPENEX 1.25 MG NEB SCH ×3 (04:50→22:05)
[2017-12-10] MEDS: PROTONIX PO SCH (05:43)
[2017-12-10] MEDS: LASIX TAB PO SCH (05:43)
[2017-12-10] MEDS: ASTELIN 0.1% NAS SCH ×2 (08:00→20:57)
[2017-12-10] MEDS: COLACE PO SCH ×2 (08:01→20:58)
[2017-12-10] MEDS: SODIUM BICARBONATE PO SCH ×2 (08:01→20:57)
[2017-12-10] MEDS: LIPITOR PO SCH (08:02)
[2017-12-10] MEDS: VITAMIN D PO SCH (08:02)
[2017-12-10] MEDS: ZYLOPRIM PO SCH ×2 (08:02→20:57)
[2017-12-10] MEDS: BALANCED B-100 PO SCH (08:02)
[2017-12-10] MEDS: ZESTRIL PO SCH (08:02)
[2017-12-10] MEDS: TOPROL XL PO SCH ×2 (08:02→20:57)
[2017-12-10] MEDS: ASPIRIN EC PO SCH (08:02)
[2017-12-10] MEDS: PREDNISONE PO SCH (08:02)
[2017-12-10] MEDS: MOMETASONE IH SCH ×2 (08:03→22:42)
[2017-12-10] MEDS: ELIQUIS PO SCH ×2 (08:03→20:57)
[2017-12-10] MEDS: NON-FORMULARY MEDICATION (Azelastine Hcl [Azelastine Hcl] 1 DROP) OP SCH ×2 (08:03→22:42)
[2017-12-10] MEDS: FORMOTEROL IH SCH ×2 (08:03→22:42)
[2017-12-11] MEDS: XOPENEX 1.25 MG NEB SCH ×3 (05:37→21:08)
[2017-12-11] MEDS: PROTONIX PO SCH (06:30)
[2017-12-11] MEDS: LASIX TAB PO SCH (06:30)
[2017-12-11] MEDS: ASTELIN 0.1% NAS SCH ×2 (08:13→20:02)
[2017-12-11] MEDS: SODIUM BICARBONATE PO SCH ×2 (08:14→20:02)
[2017-12-11] MEDS: COLACE PO SCH ×2 (08:14→20:03)
[2017-12-11] MEDS: ASPIRIN EC PO SCH (08:14)
[2017-12-11] MEDS: BALANCED B-100 PO SCH (08:14)
[2017-12-11] MEDS: TOPROL XL PO SCH ×2 (08:15→20:03)
[2017-12-11] MEDS: ZESTRIL PO SCH (08:15)
[2017-12-11] MEDS: LIPITOR PO SCH (08:15)
[2017-12-11] MEDS: PREDNISONE PO SCH (08:15)
[2017-12-11] MEDS: NON-FORMULARY MEDICATION (Azelastine Hcl [Azelastine Hcl] 1 DROP) OP SCH ×2 (08:15→20:03)
[2017-12-11] MEDS: ZYLOPRIM PO SCH ×2 (08:15→20:03)
[2017-12-11] MEDS: VITAMIN D PO SCH (08:15)
[2017-12-11] MEDS: FORMOTEROL IH SCH ×2 (08:16→20:03)
[2017-12-11] MEDS: MOMETASONE IH SCH ×2 (08:16→20:03)
[2017-12-11] MEDS: ELIQUIS PO SCH ×2 (08:16→20:02)
--- NOTE | 2017-12-11 11:14 | DI ---
EXAM: Two views of the chest. History: Atrial fibrillation, short of breath Comparison: Chest CT 05/11/2017 Findings: Atherosclerotic vascular calcifications. Heart is enlarged. No focal consolidation. No appreciable pleural fluid and no pneumothorax. No acute osseous abnormalities. Impression: Cardiomegaly without evidence for pulmonary edema.
[2017-12-12] MEDS: XOPENEX 1.25 MG NEB SCH ×3 (05:05→22:08)
[2017-12-12] MEDS: LASIX TAB PO SCH (06:28)
[2017-12-12] MEDS: PROTONIX PO SCH (06:28)
[2017-12-12] MEDS: BALANCED B-100 PO SCH (08:42)
[2017-12-12] MEDS: ASTELIN 0.1% NAS SCH ×2 (08:42→20:21)
[2017-12-12] MEDS: COLACE PO SCH ×2 (08:42→20:22)
[2017-12-12] MEDS: ZESTRIL PO SCH (08:43)
[2017-12-12] MEDS: ZYLOPRIM PO SCH ×2 (08:43→20:22)
[2017-12-12] MEDS: SODIUM BICARBONATE PO SCH ×2 (08:43→20:21)
[2017-12-12] MEDS: TOPROL XL PO SCH ×2 (08:43→20:22)
[2017-12-12] MEDS: VITAMIN D PO SCH (08:43)
[2017-12-12] MEDS: LIPITOR PO SCH (08:45)
[2017-12-12] MEDS: ASPIRIN EC PO SCH (08:45)
[2017-12-12] MEDS: ELIQUIS PO SCH ×2 (08:45→20:21)
[2017-12-12] MEDS: PREDNISONE PO SCH (08:45)
[2017-12-12] MEDS: NON-FORMULARY MEDICATION (Azelastine Hcl [Azelastine Hcl] 1 DROP) OP SCH ×2 (08:49→20:23)
[2017-12-12] MEDS: MOMETASONE IH SCH ×2 (08:50→20:23)
[2017-12-12] MEDS: FORMOTEROL IH SCH ×2 (08:50→20:23)
[2017-12-13] MEDS: XOPENEX 1.25 MG NEB SCH ×3 (05:04→22:18)
[2017-12-13] MEDS: PROTONIX PO SCH (06:37)
[2017-12-13] MEDS: LASIX TAB PO SCH (06:37)
[2017-12-13] MEDS: TYLENOL PO PRN (06:45)
[2017-12-13] MEDS: ASPIRIN EC PO SCH (08:25)
[2017-12-13] MEDS: PREDNISONE PO SCH (08:25)
[2017-12-13] MEDS: MOMETASONE IH SCH ×2 (09:10→20:52)
[2017-12-13] MEDS: FORMOTEROL IH SCH ×2 (09:10→20:52)
[2017-12-13] MEDS: NON-FORMULARY MEDICATION (Azelastine Hcl [Azelastine Hcl] 1 DROP) OP SCH ×2 (09:10→20:54)
[2017-12-13] MEDS: ASTELIN 0.1% NAS SCH ×2 (09:11→20:53)
[2017-12-13] MEDS: SODIUM BICARBONATE PO SCH ×2 (09:11→20:54)
[2017-12-13] MEDS: TOPROL XL PO SCH ×2 (09:12→20:55)
[2017-12-13] MEDS: ZYLOPRIM PO SCH ×2 (09:12→20:55)
[2017-12-13] MEDS: BALANCED B-100 PO SCH (09:12)
[2017-12-13] MEDS: VITAMIN D PO SCH (09:12)
[2017-12-13] MEDS: LIPITOR PO SCH (09:12)
[2017-12-13] MEDS: COLACE PO SCH ×2 (09:12→20:54)
[2017-12-13] MEDS: ZESTRIL PO SCH (09:13)
[2017-12-13] MEDS: ELIQUIS PO SCH ×2 (09:13→20:58)
[2017-12-14] MEDS: XOPENEX 1.25 MG NEB SCH ×3 (05:05→21:54)
[2017-12-14] MEDS: LASIX TAB PO SCH (06:10)
[2017-12-14] MEDS: PROTONIX PO SCH (06:10)
[2017-12-14 06:12] VITALS: TEMP 97.5
[2017-12-14] MEDS: ASTELIN 0.1% NAS SCH ×2 (10:30→21:52)
[2017-12-14] MEDS: PREDNISONE PO SCH (10:30)
[2017-12-14] MEDS: ASPIRIN EC PO SCH (10:30)
[2017-12-14] MEDS: NON-FORMULARY MEDICATION (Azelastine Hcl [Azelastine Hcl] 1 DROP) OP SCH ×2 (10:31→21:56)
[2017-12-14] MEDS: COLACE PO SCH ×2 (10:31→21:53)
[2017-12-14] MEDS: BALANCED B-100 PO SCH (10:31)
[2017-12-14] MEDS: FORMOTEROL IH SCH ×2 (10:32→21:56)
[2017-12-14] MEDS: VITAMIN D PO SCH (10:32)
[2017-12-14] MEDS: LIPITOR PO SCH (10:32)
[2017-12-14] MEDS: ZESTRIL PO SCH (10:32)
[2017-12-14] MEDS: MOMETASONE IH SCH ×2 (10:32→21:56)
[2017-12-14] MEDS: SODIUM BICARBONATE PO SCH ×2 (10:32→21:52)
[2017-12-14] MEDS: ELIQUIS PO SCH ×2 (10:33→21:53)
[2017-12-14] MEDS: ZYLOPRIM PO SCH ×2 (10:33→21:53)
[2017-12-14] MEDS: TOPROL XL PO SCH ×2 (10:33→21:52)
[2017-12-14] MEDS: TYLENOL PO PRN (21:53)
[2017-12-15] MEDS: XOPENEX 1.25 MG NEB SCH ×2 (04:53→14:06)
[2017-12-15 05:34] VITALS: BP 122/64
[2017-12-15] MEDS: LASIX TAB PO SCH (05:57)
[2017-12-15] MEDS: PROTONIX PO SCH (05:57)
[2017-12-15] MEDS: ASTELIN 0.1% NAS SCH (08:14)
[2017-12-15] MEDS: BALANCED B-100 PO SCH (08:14)
[2017-12-15] MEDS: VITAMIN D PO SCH (08:15)
[2017-12-15] MEDS: PREDNISONE PO SCH (08:15)
[2017-12-15] MEDS: ASPIRIN EC PO SCH (08:15)
[2017-12-15] MEDS: TOPROL XL PO SCH (08:15)
[2017-12-15] MEDS: LIPITOR PO SCH (08:15)
[2017-12-15] MEDS: ZYLOPRIM PO SCH (08:15)
[2017-12-15] MEDS: SODIUM BICARBONATE PO SCH (08:15)
[2017-12-15] MEDS: COLACE PO SCH (08:15)
[2017-12-15] MEDS: NON-FORMULARY MEDICATION (Azelastine Hcl [Azelastine Hcl] 1 DROP) OP SCH (08:16)
[2017-12-15] MEDS: MOMETASONE IH SCH (08:16)
[2017-12-15] MEDS: FORMOTEROL IH SCH (08:16)
[2017-12-15] MEDS: ZESTRIL PO SCH (08:17)
[2017-12-15] MEDS: ELIQUIS PO SCH (08:17)
--- NOTE | 2018-01-26 13:21 | DS ---
DATE OF SERVICE: 12/15/17 HISTORY OF PRESENT ILLNESS: Ms. Brown was brought here after an acute stay at [facility] from 12/01 to . She came with acute dizziness, weakness and found to be in atrial fibrillation. She was started on IV fluids, Omnicef and Duonebs. She was briefly treated with IV Cardizem. Her ProAir like was changed to Xopenex. Her atrial fibrillation slowed, she felt better. It was decided she would be best served with rate control and anticoagulation; she was started on Eliquis. She got a little confused; seem to be from the steroids and they were reduced. Despite this, her cough/wheeze markedly improved. Her renal function had problems Various prescriptions were changed and she had GFR and K improvement at discharge. She wanted to go home; but it was felt best to monitor longer and we suggested [facility] swing bed. She/family agreed she was accepted and is being transferred. Pulmonary ? She even had pneumonia; vs atelectasis/other. Her BS did go up a little with the steroids but not badly. . HOSPITAL COURSE: I went out of town. Dr. Martinez took care of her the entire time, she was here. When I returned she was ready for discharge. She did well with therapy. Her vitals were stable. A repeat chest x-ray showed nothing acute and her white count started at 19 and fell to 11-12 range, her hemoglobin at 13 dropping to 11 without signs of bleeding. Her chemistries showed initial GFR of 27 and that actually improved to 35. She was adamant that she was okay for discharge. Her family felt they could try to manage her problems at home at least for awhile. DISCHARGE ASSESSMENT/PROBLEM LIST (CHANGED FROM ADMISSION): 0. WEAKNESS - ACUTE/CHRONIC WITH MULTIPLE ETIOLOGIES 1. ATRIAL FIBRILLATION - NEW 2. CONFUSION - REMOTE - STEROID INFLUENCED 3. AGITATION - REMOTE - SAME CONFUSION 4. GAIT DIFFICULTIES - ACUTE ON CHRONIC AND IMPROVED 5. ACUTE RENAL INSUFFICIENCY ON CHRONIC KIDNEY DISEASE - IMPROVED PLAN: 1. See Discharge packet. MTDD
== END 2017-12-15 18:12 | disposition home or self-care (01) | DRG 204 ==
LOC: MEDSURG A 20:01
PROVIDERS: ADMIT Family Medicine; ATTEND Family Medicine
DX: R06.02 Shortness of breath (principal); R42 Dizziness and giddiness; R41.0 Disorientation, unspecified; R45.1 Restlessness and agitation; R26.9 Unspecified abnormalities of gait and mobility; I48.91 Unspecified atrial fibrillation; N18.9 Chronic kidney disease, unspecified; N28.9 Disorder of kidney and ureter, unspecified
CPT/HCPCS: 36415; 80048; 82962; 85025; 94640; 97802

== ENCOUNTER 2017-12-23 13:03 | Outpatient (CLI) | payer OTHER ==
[2017-12-23] MEDS ORDERED: LIDOCAINE HCL 1% SDV IM STA (13:51)
[2017-12-23] MEDS ORDERED: ROCEPHIN IM STA (13:51)
[2017-12-23 13:52] VITALS: BP 128/78; TEMP 97.4
--- NOTE | 2017-12-23 15:03 | DI ---
EXAM: PA and lateral views of the chest HISTORY: Cough. COMPARISON: Chest x-ray 12/11/2017 and multiple priors including CT chest 05/11/2017 FINDINGS: The cardiomediastinal silhouette is unchanged enlarged. There is no pneumothorax or pleur al effusion. There is no consolidation, nodule or mass. The osseous structures are stable. IMPRESSION: Cardiomegaly without acute consolidation.
== END 2017-12-23 14:13 | disposition home or self-care (01) ==
LOC: RAD 13:03
PROVIDERS: ATTEND Family Medicine
DX: R05 Cough (principal)
CPT/HCPCS: 96372

== ENCOUNTER 2018-01-05 11:43 | Outpatient (CLI) | END 2018-01-05 11:44 | disposition home or self-care (01) | LOC: NONPT 11:43 | PROVIDERS: ATTEND Family Medicine | DX: I50.32 Chronic diastolic (congestive) heart failure (principal) | CPT/HCPCS: 80048 ==

== ENCOUNTER 2018-02-05 14:39 | Outpatient (CLI) ==
--- NOTE | 2018-02-05 15:31 | US ---
EXAM: Left lower extremity venous Doppler History: Left lower extremity pain and swelling. Technique: Multiple sonographic images through the left lower extremity were obtained. Color duplex Doppler was used to interrogate vascular flow. Findings: The left common femoral, greater saphenous, profunda, superficial femoral, popliteal, gareth leroy, posterior tibial and anterior tibial veins demonstrate spontaneous flow with normal compression and normal augmentation. 2.7 cm x 1.2 cm x 1.6 cm Leggett's cyst. Left lower extremity subcutaneous e ana. Impression: 1. No sonographic evidence for deep venous thrombosis. 2. Left Leggett's cyst. 3. Left lower extremity subcutaneous edema
== END 2018-02-05 14:40 ==
LOC: RAD 14:39
PROVIDERS: ATTEND Family Medicine
DX: R60.1 Generalized edema (principal)

== ENCOUNTER 2018-02-06 05:40 | Outpatient (CLI) | END 2018-02-06 06:19 | disposition short-term general hospital (02) | LOC: AMBL 05:40 | PROVIDERS: ATTEND Internal Medicine Geriatric Medicine | DX: M79.605 Pain in left leg (principal); R60.0 Localized edema; I48.91 Unspecified atrial fibrillation ==

== ENCOUNTER 2018-04-13 09:35 | Outpatient (CLI) | END 2018-04-13 09:36 | disposition home or self-care (01) | LOC: NONPT 09:35 | PROVIDERS: ATTEND Family Medicine | DX: T63.301A Toxic effect of unspecified spider venom, accidental (unintentional), initial encounter (principal); L03.116 Cellulitis of left lower limb; E11.22 Type 2 diabetes mellitus with diabetic chronic kidney disease | CPT/HCPCS: 80048; 82607; 83735; 84100 ==

== ENCOUNTER 2018-04-22 18:32 | Outpatient (CLI) | payer OTHER | END 2018-04-22 18:33 | disposition home or self-care (01) | LOC: LAB 18:32 | PROVIDERS: ATTEND Family Medicine | DX: L03.116 Cellulitis of left lower limb (principal); Z79.899 Other long term (current) drug therapy; E11.22 Type 2 diabetes mellitus with diabetic chronic kidney disease | CPT/HCPCS: 36415; 80053; 83036; 84550; 85025 ==

== ENCOUNTER 2018-05-11 15:20 | Outpatient (CLI) | payer OTHER | END 2018-05-11 15:21 | disposition home or self-care (01) | LOC: NONPT 15:20 | PROVIDERS: ATTEND Family Medicine | DX: I25.10 Atherosclerotic heart disease of native coronary artery without angina pectoris (principal); I13.0 Hypertensive heart and chronic kidney disease with heart failure and stage 1 through stage 4 chronic kidney disease, or unspecified chronic kidney disease; E11.22 Type 2 diabetes mellitus with diabetic chronic kidney disease; N18.9 Chronic kidney disease, unspecified; I50.32 Chronic diastolic (congestive) heart failure; T63.301D Toxic effect of unspecified spider venom, accidental (unintentional), subsequent encounter; I48.2 Chronic atrial fibrillation | CPT/HCPCS: 80048; 83540; 84550; 85025 ==

== ENCOUNTER 2018-09-14 01:31 | Outpatient (CLI) | payer OTHER ==
[2018-06-15 04:22] VITALS: BMI 43.9
== END 2018-09-14 01:51 | disposition short-term general hospital (02) ==
LOC: AMBL 01:31
PROVIDERS: ATTEND Internal Medicine Geriatric Medicine
DX: M54.9 Dorsalgia, unspecified (principal); M79.621 Pain in right upper arm; F03.90 Unspecified dementia, unspecified severity, without behavioral disturbance, psychotic disturbance, mood disturbance, and anxiety; W19.XXXA Unspecified fall, initial encounter; Y92.122 Bedroom in nursing home as the place of occurrence of the external cause

== ENCOUNTER 2018-10-15 12:29 | Outpatient (CLI) ==
[2018-06-15 04:22] VITALS: BMI 43.9
== END 2018-10-15 12:30 | disposition home or self-care (01) ==
LOC: AMBL 12:29
PROVIDERS: ATTEND Emergency Medicine
DX: S09.90XA Unspecified injury of head, initial encounter (principal); M54.9 Dorsalgia, unspecified; F03.90 Unspecified dementia, unspecified severity, without behavioral disturbance, psychotic disturbance, mood disturbance, and anxiety; R41.841 Cognitive communication deficit; R29.6 Repeated falls; W19.XXXA Unspecified fall, initial encounter; Z79.01 Long term (current) use of anticoagulants